=== PATIENT | male | born 1955 | race Asian ===

== ENCOUNTER 2017-03-12 11:50 | Day surgery (SDC) | payer OTHER ==
[~2017-03-12] VITALS: Ht 170.2 cm; Wt 81.5 kg
[2017-03-12] VITALS (13 sets, daily range): BP systolic 96–146; BP diastolic 61–76; PULSE 64–76; RESP 12–26; Ht 170.2 cm; Wt 81.5 kg
[~2017-03-12 11:50] MED LIST: CEFAZOLIN 2 GM/50 ML (PMX) 50 ML IVPB SCH; SOD CHLORIDE 0.9% 1,000 ML IV SCH
[2017-03-12] MEDS ORDERED: PANT40TA4 PO (12:41)
[2017-03-12] MEDS ORDERED: ALLO300T2 PO (12:42)
[2017-03-12] MEDS ORDERED: FOLI-49 PO (12:42)
[2017-03-12] MEDS ORDERED: LOSA50TA6 PO (12:42)
[2017-03-12] MEDS ORDERED: COLC0.6T6 PO (12:43)
[2017-03-12] MEDS ORDERED: AMLO5TAB4 PO (12:43)
[2017-03-12] MEDS ORDERED: ASPI-664 PO (12:44)
[2017-03-12] MEDS ORDERED: ATOR20TA38 PO (12:45)
[2017-03-12] MEDS ORDERED: METO-448 PO (12:45)
[2017-03-12] MEDS ORDERED: SOD CHLORIDE 0.9% 1,000 ML IV SCH (13:30)
[2017-03-12] MEDS ORDERED: CEFAZOLIN 2 GM/50 ML (PMX) 50 ML IVPB ONE (13:30)
[2017-03-12] MEDS ORDERED: BUPIVACAINE 0.25% (MPF) 30 ML INJ ONE (14:32)
[2017-03-12] MEDS ORDERED: METOCLOPRAMIDE 10 MG INJ ONE (14:36)
[2017-03-12] MEDS ORDERED: FENTAnyl 50 MCG/ML VIAL ONE (14:36)
[2017-03-12] MEDS ORDERED: PROPOFOL 20 ML ONE (14:36)
[2017-03-12] MEDS ORDERED: MIDAZOLAM 1 MG/ML 2 ML INJ ONE (14:36)
[2017-03-12] MEDS ORDERED: CEFAZOLIN 1 GM INJ ONE (14:42)
[2017-03-12] MEDS ORDERED: hydrALAzine 20 MG INJ IV PRN (15:00)
[2017-03-12] MEDS ORDERED: MEPERIDINE 25 MG INJ IV PRN (15:00)
[2017-03-12] MEDS ORDERED: LABETALOL HCL 20MG INJ IV PRN (15:00)
[2017-03-12] MEDS ORDERED: ONDANSETRON 4 MG INJ IV PRN (15:00)
[2017-03-12] MEDS ORDERED: DIPHENHYDRAMINE 50 MG INJ IV PRN (15:00)
[2017-03-12] MEDS ORDERED: OXYCODONE/ACETAMINOPHEN (5/325) TAB PO PRN ×2 (15:00)
[2017-03-12] MEDS ORDERED: HYDROmorphONE (0.2 MG/ML) 10ML SYG IV PRN ×3 (15:00)
--- NOTE | 2017-03-12 15:06 | OPR ---
Date/Time of Note Date/Time of Note DATE: 03/12/17 TIME: 15:04 Operative Report Procedure Date: Mar 12, 2017 Preoperative Diagnosis left forehead mass Postoperative Diagnosis same Operation/Procedure Performed 1. excision of left forehead mass 3 cm mass 3 cm incision 2. localized adjacent tissue transfer with the use of skin flaps 6 sq cm defect 3. therapeutic injection of subcutaneous local anesthesia Surgeon see signature line Inspector [employer] none Anesthesia Type: general Estimated Blood Loss: 0 - 10 ml's Transfusion none Specimen left forehead mass Grafts/Implants none Complications none Pt Condition Post Procedure: stable Indications This is a 61-year-old male with a left forehead mass. He requests surgical excision. Risks alternatives benefits and percent were discussed the patient. Patient expressed understanding consents to the operation. Procedure Description Patient is taken to the OR and prepped and draped in usual sterile fashion. Surgical timeout was performed. IV antibiotics given. Transverse incision was made over the left forehead mass with a 15 blade. Dissection Carrs carried onto the mass. The mass and circumferentially excised off of the bone. There is good hemostasis. Due to the tissue defect localized adjacent tissue transfer with these of skin flaps was performed. Multilayer closure with interrupted 3-0 Vicryl and running 3-0 Monocryl. Therapeutic subcutaneous local anesthesia was injected. Dressings were applied. Brea WRIGHT Mar 12, 2017 15:06
[2017-03-12] MEDS ORDERED: HYDROCODONE/APAP (5/325) TAB PO ONE (15:30)
== END 2017-03-12 18:33 | disposition home or self-care (01) ==
LOC: SDS 11:50
PROVIDERS: ATTEND Surgery
DX: D17.0 Benign lipomatous neoplasm of skin and subcutaneous tissue of head, face and neck (principal); I10 Essential (primary) hypertension
CPT/HCPCS: 14040; 88307; J0690; J2250; J2765; J3010; Z7512; Z7610